=== PATIENT | male | born 1990 | race Caucasian/White ===

== ENCOUNTER 2023-12-06 23:54 | Emergency (ER) | payer MEDICAID ==
[~2023-12-06] VITALS: Ht 170.2 cm; Wt 69.0 kg
[~2023-12-06 23:54] MED LIST: FOLI-43 PO; THIA100T72 PO
[2023-12-07 00:07] VITALS: TEMP 97.6; O2SAT 98
[2023-12-07 00:45] LABS: BASOPHILS % 0.7 % (0.0-2.0); DIFFERENTIAL COMMENT 0; EOSINOPHILS % 0.2 % (0.0-5.0); HEMATOCRIT. 36.6 % (42.0-52.0); HEMOGLOBIN. 11.8 g/dL (14.0-18.0); LYMPHOCYTES % 36.2 % (20.0-50.0); MEAN CORPUSCULAR HEMOGLOBIN 25.3 pg (28.0-32.0); MEAN CORPUSCULAR HGB CONC 32.3 g/dL (31.0-37.0); MEAN CORPUSCULAR VOLUME 78.6 fL (80.0-94.0); MEAN PLATELET VOLUME 8.3 fl (7.4-10.4); MONOCYTES % 8.7 % (2.0-8.0); NEUTROPHILS % 54.2 % (40.0-76.0); PLATELET 308 x1000/uL (130-400); RED BLOOD CELL COUNT 4.65 mill/uL (4.7-6.1); RED CELL DISTRIBUTION WIDTH 18.6 % (11.6-14.6); WHITE BLOOD COUNT 8.4 x1000/uL (4.5-11.0)
[2023-12-07 00:49] LABS: CHLORIDE 104 mEq/L (98-107); SODIUM 142 mEq/L (136-145)
[2023-12-07 00:50] LABS: CALCIUM 9.5 mg/dL (8.7-10.4); CARBON DIOXIDE 26 mEq/L (21-32)
[2023-12-07] MEDS: SODIUM CHLORIDE 0.9% 1,000 ML IV ONE (00:52)
[2023-12-07] MEDS: ONDANSETRON HCL 4MG/2ML INJ IV STA (00:53)
[2023-12-07] MEDS: MAGNESIUM/ALUMINUM HYDROXIDE/SIMETHICONE 30ML UDC PO STA (00:53)
[2023-12-07] MEDS: KETOROLAC 30MG/ML VIAL IV STA (00:53)
[2023-12-07 00:55] LABS: CREATININE 0.7 mg/dL (0.6-1.3); GLUCOSE 106 mg/dL (70-105)
[2023-12-07 00:56] LABS: ETHANOL BLOOD 300 mg/dL (<10); UREA NITROGEN BLOOD 8 mg/dL (9-23)
[2023-12-07 00:57] LABS: ALANINE AMINOTRANSFERASE 32 IU/L (10-49); ALBUMIN 4.9 g/dL (3.2-4.8); AMYLASE 66 IU/L (30-118); ASPARTATE AMINOTRANSFERASE 67 IU/L (<34)
[2023-12-07 00:58] LABS: BILIRUBIN TOTAL 0.6 mg/dL (0.1-1.0); PROTEIN TOTAL 8.8 g/dL (6.0-8.3)
[2023-12-07 00:59] LABS: PROTHROMBIN TIME 11.4 sec (9.6-11.0)
[2023-12-07 01:08] LABS: CLARITY URINE CLEAR (CLEAR); COLOR URINE YELLOW (YELLOW); GLUCOSE URINE NEGATIVE (NEGATIVE); KETONES URINE TRACE (NEGATIVE); LEUKOCYTE ESTERASE URINE NEGATIVE (NEGATIVE); NITRITE URINE NEGATIVE (NEGATIVE); OCCULT BLOOD URINE NEGATIVE (NEGATIVE); PH URINE 5.5 (4.5-8.0); PROTEIN URINE 1+ (NEGATIVE); UROBILINOGEN URINE 0.2 E.U./dL (0.2-1.0)
[2023-12-07 01:18] LABS: *AMPHETAMINES SCREEN URINE NEGATIVE (NEGATIVE)
[2023-12-07 01:19] LABS: *BARBITURATES SCREEN URINE NEGATIVE (NEGATIVE); *BENZODIAZEPINES SCREEN URINE NEGATIVE (NEGATIVE); *COCAINE SCREEN URINE NEGATIVE (NEGATIVE); CANNABINOID URINE SCREEN NEGATIVE (NEGATIVE); ECSTASY MDMA SCREEN URINE NEGATIVE (NEGATIVE); METHADONE URINE SCREEN NEGATIVE (NEGATIVE); OPIATES URINE SCREEN NEGATIVE (NEGATIVE); PHENCYCLIDINE URINE SCREEN NEGATIVE (NEGATIVE)
[2023-12-07] MEDS ORDERED: ONDA4TAB50 MT (04:16)
[2023-12-07] MEDS ORDERED: MAG355OR21 MT (04:16)
[2023-12-07 04:27] VITALS: BP 127/72; PULSE 98; RESP 17
[2023-12-07 04:39] LABS: RBC URINE 0-2 /hpf (0-2); WBC URINE 0-2 /hpf (0-2)
[2023-12-07 04:40] LABS: BACTERIA URINE NONE SEEN; FINE GRANULAR CASTS URINE 0-5 /lpf; SQUAMOUS EPITHELIAL CELL URINE NONE SEEN /lpf (RARE/1+)
== END 2023-12-07 04:54 | disposition home or self-care (01) ==
LOC: ER 12-07 00:03
DX: F10.229 Alcohol dependence with intoxication, unspecified (principal); R10.13 Epigastric pain; Y90.8 Blood alcohol level of 240 mg/100 ml or more
CPT/HCPCS: 80053; 80305; 81003; 80320; 82150; 83690; 85025; 85610; 36415; 96361; 96374; 96375; 99284; J1885; J2405; J7030; Z7610 ×3; G0480

== ENCOUNTER 2024-08-11 09:50 | Inpatient (IN) | payer MEDICAID ==
[~2024-08-11] VITALS: Ht 167.6 cm; Wt 64.1 kg
[~2024-08-11 09:50] MED LIST changes: +MAG355OR21 MT; +ONDA4TAB50 MT
[2024-08-11 10:38] LABS: BASOPHILS % 0.6 % (0.0-2.0); EOSINOPHILS % 0.6 % (0.0-5.0); HEMATOCRIT. 38.9 % (42.0-52.0); HEMOGLOBIN. 12.3 g/dL (14.0-18.0); LYMPHOCYTES % 9.1 % (20.0-50.0); MEAN CORPUSCULAR HEMOGLOBIN 25.5 pg (28.0-32.0); MEAN CORPUSCULAR HGB CONC 31.8 g/dL (31.0-37.0); MEAN CORPUSCULAR VOLUME 80.2 fL (80.0-94.0); MEAN PLATELET VOLUME 9.5 fl (7.4-10.4); MONOCYTES % 9.9 % (2.0-8.0); NEUTROPHILS % 79.8 % (40.0-76.0); PLATELET 59 x1000/uL (130-400); RED BLOOD CELL COUNT 4.85 mill/uL (4.7-6.1); RED CELL DISTRIBUTION WIDTH 20.1 % (11.6-14.6); WHITE BLOOD COUNT 5.3 x1000/uL (4.5-11.0)
[2024-08-11] MEDS ORDERED: MIDAZOLAM HCL 2 MG/2 ML VIAL IV ONE (10:45)
[2024-08-11 10:49] LABS: CHLORIDE 102 mEq/L (98-107); POTASSIUM 3.8 mEq/L (3.5-5.1); SODIUM 139 mEq/L (136-145)
[2024-08-11 10:50] LABS: CALCIUM 9.2 mg/dL (8.7-10.4); CARBON DIOXIDE 26 mEq/L (21-32)
[2024-08-11 10:55] LABS: CREATININE 0.6 mg/dL (0.6-1.3); GLUCOSE 105 mg/dL (70-105); UREA NITROGEN BLOOD 9 mg/dL (9-23)
[2024-08-11 10:56] LABS: ETHANOL BLOOD 36 mg/dL (<10)
[2024-08-11] MEDS ORDERED: ACETAMINOPHEN 325MG TABLET PO PRN (16:45)
[2024-08-11] MEDS ORDERED: ONDANSETRON HCL 4MG/2ML INJ IV PRN (16:45)
[2024-08-11] MEDS ORDERED: LORAZEPAM 1MG TABLET PO PRN (16:45)
[2024-08-11] MEDS: SODIUM CHLORIDE 0.9% 1,000 ML IV ONE (19:12)
[2024-08-12] VITALS (7 sets, daily range): BP systolic 123–156; BP diastolic 81–103; PULSE 75–89; RESP 18–20; TEMP 36.28068–37.00296; O2SAT 98–100
[2024-08-12] MEDS: CHLORDIAZEPOXIDE 25MG CAPSULE PO SCH (00:32)
[2024-08-12] MEDS: HYDROCORTISONE 1% CREAM 30GM TOP SCH (21:04)
[2024-08-13] VITALS: BP 129/90; PULSE 85; RESP 18; TEMP 36.6696; O2SAT 100
[2024-08-13 04:00] VITALS: BP 133/91; PULSE 91; RESP 18; TEMP 36.89184; O2SAT 100
[2024-08-13 07:58] VITALS: BP 115/86; PULSE 78; RESP 18; TEMP 36.6696; TEMP 36.66960; O2SAT 99
[2024-08-13 09:18] VITALS: BP 115/86; PULSE 78; TEMP 98; O2SAT 99
== END 2024-08-13 11:45 | disposition home or self-care (01) | DRG 53 ==
LOC: ER 09:50 → EDBEDREQ 10:46 → 7WST 13:24 → EDBEDREQTM 14:10 → EDBEDREQ 14:10 → EDBEDREQSVC 22:06
PROVIDERS: ADMIT Internal Medicine; ATTEND Internal Medicine
DX: G40.89 Other seizures (principal); D64.9 Anemia, unspecified; F10.239 Alcohol dependence with withdrawal, unspecified; F10.229 Alcohol dependence with intoxication, unspecified; Y90.9 Presence of alcohol in blood, level not specified; K76.9 Liver disease, unspecified
CPT/HCPCS: 36415; 80048; 80320; 83735; 85025; 93005; 99285; A4606; J7030; G0480

== ENCOUNTER 2024-12-09 09:15 | Emergency (ER) | payer MEDICAID ==
[~2024-12-09] VITALS: Ht 167.6 cm; Wt 63.5 kg
[2024-12-09 09:20] VITALS: O2SAT 98
[2024-12-09 09:44] LABS: BASOPHILS % 1.7 % (0.0-2.0); DIFFERENTIAL COMMENT 0; EOSINOPHILS % 0.6 % (0.0-5.0); HEMATOCRIT. 41.2 % (42.0-52.0); HEMOGLOBIN. 13.5 g/dL (14.0-18.0); LYMPHOCYTES % 36.2 % (20.0-50.0); MEAN CORPUSCULAR HEMOGLOBIN 27.7 pg (28.0-32.0); MEAN CORPUSCULAR HGB CONC 32.9 g/dL (31.0-37.0); MEAN CORPUSCULAR VOLUME 84.4 fL (80.0-94.0); MEAN PLATELET VOLUME 9.3 fl (7.4-10.4); MONOCYTES % 9.5 % (2.0-8.0); PLATELET 68 x1000/uL (130-400); RED BLOOD CELL COUNT 4.88 mill/uL (4.7-6.1); RED CELL DISTRIBUTION WIDTH 17.1 % (11.6-14.6); WHITE BLOOD COUNT 2.9 x1000/uL (4.5-11.0)
[2024-12-09] MEDS: ONDANSETRON 4MG ODT PO ONE (09:48)
[2024-12-09] MEDS: CHLORDIAZEPOXIDE 25MG CAPSULE PO ONE (09:50)
[2024-12-09 09:54] LABS: CHLORIDE 98 mEq/L (98-107); POTASSIUM 3.5 mEq/L (3.5-5.1); SODIUM 136 mEq/L (136-145)
[2024-12-09 09:55] LABS: CARBON DIOXIDE 24 mEq/L (21-32)
[2024-12-09 09:56] LABS: CALCIUM 9.3 mg/dL (8.7-10.4)
[2024-12-09 10:00] LABS: CREATININE 0.7 mg/dL (0.6-1.3)
[2024-12-09 10:01] LABS: ETHANOL BLOOD 132 mg/dL (<10); GLUCOSE 109 mg/dL (70-105); UREA NITROGEN BLOOD 8 mg/dL (9-23)
[2024-12-09 10:02] LABS: ALANINE AMINOTRANSFERASE 322 IU/L (10-49); ALBUMIN 5.2 g/dL (3.2-4.8); ASPARTATE AMINOTRANSFERASE 695 IU/L (<34)
[2024-12-09 10:03] LABS: BILIRUBIN TOTAL 1.6 mg/dL (0.1-1.0); PHOSPHORUS 3.2 mg/dL (2.5-4.9); PROTEIN TOTAL 8.6 g/dL (6.0-8.3)
[2024-12-09 11:51] VITALS: BP 138/84; PULSE 87; RESP 22; TEMP 36.9; O2SAT 98
== END 2024-12-09 11:58 | disposition home or self-care (01) ==
LOC: ER 09:15
DX: F10.129 Alcohol abuse with intoxication, unspecified (principal); K76.0 Fatty (change of) liver, not elsewhere classified; F12.10 Cannabis abuse, uncomplicated; I49.9 Cardiac arrhythmia, unspecified; Y90.6 Blood alcohol level of 120-199 mg/100 ml
CPT/HCPCS: 80053; 80320; 83735; 84100; 85025; 36415; 76700; 93005; 99284; Q0162; G0480